=== PATIENT | female | born 1940 | race Caucasian/White ===

== ENCOUNTER 2017-02-06 07:41 | Emergency (ER) | payer MEDICARE, OTHER ==
[~2017-02-06] VITALS: Ht 162.6 cm; Wt 55.0 kg
[2017-02-06] MEDS ORDERED: SODIUM CHLORIDE FLUSH 10ML SYR IVF ONE (08:00)
[2017-02-06 08:21] LABS: WHITE BLOOD COUNT 8.2 x10^3/uL (3.4-10)
[2017-02-06 08:46] LABS: ASPARTATE AMINO TRANSFERASE 20 U/L (15-37); BLOOD UREA NITROGEN 32 mg/dL (7-18)
[2017-02-06 12:48] VITALS: BP 125/47
== END 2017-02-06 13:21 | disposition home or self-care (01) ==
LOC: ED 13:15
DX: R42 Dizziness and giddiness (principal); H53.9 Unspecified visual disturbance
CPT/HCPCS: 36415; 70551; 71010; 80053; 85025; 93005; 93880; 99285

== ENCOUNTER 2019-10-02 12:15 | Emergency (ER) | payer MEDICARE, OTHER ==
[~2019-10-02] VITALS: Ht 162.6 cm; Wt 52.2 kg
--- NOTE | 2019-10-02 14:48 | NUR ---
CV TECH: PT TO ROOM FROM [facility].
[2019-10-02] MEDS ORDERED: ACYC-114 PO (15:15)
--- NOTE | 2019-10-02 15:19 | NUR ---
VANESSA JONES AT BEDSIDE
--- NOTE | 2019-10-02 15:55 | NUR ---
PT IN US.
--- NOTE | 2019-10-02 16:39 | NUR ---
PT TO XR
--- NOTE | 2019-10-02 16:51 | NUR ---
RESULTS BACK, PT FOR RECHECK.
[2019-10-02 17:22] VITALS: BP 142/71
== END 2019-10-02 17:24 | disposition home or self-care (01) ==
LOC: ED 16:37
DX: N63.0 Unspecified lump in unspecified breast (principal)
CPT/HCPCS: 71046; 76642; 99284

== ENCOUNTER → 2019-10-03 | Outpatient (CLI) | payer MEDICARE ==
[~2019-10-03] MED LIST: ACYC-114 PO
== END | disposition home or self-care (01) ==
LOC: CFH 13:22
PROVIDERS: ATTEND Family Medicine
DX: N64.4 Mastodynia (principal)
CPT/HCPCS: 77066; G0279

== ENCOUNTER 2020-08-15 09:06 | Emergency (ER) | payer MEDICARE ==
[~2020-08-15] VITALS: Ht 165.1 cm; Wt 52.0 kg
[~2020-08-15 09:06] MED LIST changes: -ACYC-114 PO; +ACYC-40 PO
--- NOTE | 2020-08-15 09:35 | NUR ---
Pt arrived with complatins of lack of BM x1 week. Pt states that she had diarreha today but she is concerned that it doesn't amount to the quantity of food that she has consumed the past week. Connected to BP and O2 monitor, given warm blanket for comfort, daughter at bedside, made aware of need for UA, VIK ROMERO
--- NOTE | 2020-08-15 09:43 | NUR ---
Pt to XRAY
--- NOTE | 2020-08-15 10:13 | NUR ---
Pt assited down hallway for urine sample
[2020-08-15 10:38] LABS: BASOPHILS % (AUTO) 0 % (0-1); EOSINOPHILS % (AUTO) 1 % (1-7); LYMPHOCYTES % (AUTO) 12 % (22-44); MEAN CORPUSCULAR HEMOGLOBIN 31.8 pg (27.0-34.8); MEAN CORPUSCULAR HGB CONC 32.8 g/dL (32.4-35.8); MEAN PLATELET VOLUME 9.5 fL (7.4-10.4); MONOCYTES % (AUTO) 4 % (2-9); NEUTROPHILS % (AUTO) 83 % (42-75); PLATELET COUNT 154 x10^3/uL (130-400); RED BLOOD COUNT 4.48 x10^6/uL (3.82-5.3); RED CELL DISTRIBUTION WIDTH 13.6 % (9.6-15.2)
[2020-08-15 10:44] LABS: MD NO
[2020-08-15 10:51] LABS: ALANINE AMINOTRANSFERASE 33 U/L (12-78); ALBUMIN 3.6 g/dL (3.4-5.0); ANION GAP 6 mmol/L (5-15); CALCIUM 9.2 mg/dL (8.5-10.1); CHLORIDE 114 mmol/L (98-107); CREATININE 0.98 mg/dL (0.55-1.02)
[2020-08-15 10:51] LABS: MICROSCOPIC AUTO
[2020-08-15 10:53] LABS: ALKALINE PHOSPHATASE 75 U/L (45-117); BILIRUBIN,TOTAL 0.7 mg/dL (0.2-1.0); TOTAL PROTEIN 6.9 g/dL (6.4-8.2)
--- NOTE | 2020-08-15 11:01 | NUR ---
TASK RN: CONTINUES TO AWAIT CT. NO DISTRESS AT THIS TIME.
--- NOTE | 2020-08-15 11:12 | NUR ---
Pt in CT at this time.
--- NOTE | 2020-08-15 11:14 | NUR ---
Pt back from CT
[2020-08-15] MEDS ORDERED: OMNIPAQUE 350 MG/ML, 100ML BOTTLE ONE (11:17)
[2020-08-15 12:02] VITALS: BP 116/51
[2020-08-15] MEDS ORDERED: BENZTROPINE 1 MG/ML, 2 ML IVPush ONE (12:30)
== END 2020-08-15 12:33 | disposition home or self-care (01) ==
LOC: ED 10:19
DX: K59.00 Constipation, unspecified (principal); R10.84 Generalized abdominal pain; Z90.710 Acquired absence of both cervix and uterus
CPT/HCPCS: 36415; 74021; 74174; 80053; 81001; 85025; 87086; 99285; Q9967

== ENCOUNTER 2020-08-23 13:15 | Emergency (ER) | payer MEDICARE ==
[~2020-08-23] VITALS: Ht 162.6 cm; Wt 52.0 kg
--- NOTE | 2020-08-23 14:29 | NUR ---
[facility] KAY STITCHER: PT TO ROOM FROM LOBBY
--- NOTE | 2020-08-23 14:37 | NUR ---
PT AMBULATORY TO ROOM, PT CHANGED INTO GOWN. MONITORS IN PLACE. CALL LIGHT WITHIN REACH
--- NOTE | 2020-08-23 14:40 | NUR ---
PA AT BS
[2020-08-23] MEDS ORDERED: PINK LADY ENEMA 490 ML BOTTLE PR STA (14:43)
[2020-08-23 15:20] LABS: BASOPHILS % (AUTO) 1 % (0-1); EOSINOPHILS % (AUTO) 1 % (1-7); LYMPHOCYTES % (AUTO) 23 % (22-44); MEAN CORPUSCULAR HEMOGLOBIN 31.8 pg (27.0-34.8); MEAN CORPUSCULAR HGB CONC 33.6 g/dL (32.4-35.8); MEAN PLATELET VOLUME 9.6 fL (7.4-10.4); MONOCYTES % (AUTO) 5 % (2-9); NEUTROPHILS % (AUTO) 70 % (42-75); PLATELET COUNT 171 x10^3/uL (130-400); RED BLOOD COUNT 4.43 x10^6/uL (3.82-5.3); RED CELL DISTRIBUTION WIDTH 13.1 % (9.6-15.2)
[2020-08-23 15:35] LABS: ALANINE AMINOTRANSFERASE 44 U/L (12-78); ALBUMIN 3.9 g/dL (3.4-5.0); ANION GAP 10 mmol/L (5-15); CALCIUM 9.7 mg/dL (8.5-10.1); CHLORIDE 107 mmol/L (98-107); CREATININE 1.03 mg/dL (0.55-1.02)
[2020-08-23 15:37] LABS: ALKALINE PHOSPHATASE 73 U/L (45-117); TOTAL PROTEIN 6.9 g/dL (6.4-8.2)
[2020-08-23 15:38] LABS: MICROSCOPIC NOT IND
--- NOTE | 2020-08-23 16:06 | NUR ---
PT GIVEN JUICE & PEANUT BUTTER SANDWICH FOR HYPOGLYCEMIA. PT ENCOURAGED TO HAVE A BM SOON SHE FEELS THE URGE. COMMODE REMAINS AT BS. CALL LIGHT WITHIN REACH
[2020-08-23 16:13] VITALS: BP 128/60
--- NOTE | 2020-08-23 16:13 | NUR ---
PT SITTING UP EATING SANDWICH, DENIES ANY PAIN. PT ABLE TO HAVE SMALL BM. PT STATES SHE FEELS SOME RELIEF. NADN/VSS. CALL LIGHT WITHIN REACH
--- NOTE | 2020-08-23 17:00 | NUR ---
Patient given discharge instructions and they have confirmed that they understand the instructions. Patient ambulatory with steady gait.
== END 2020-08-23 17:01 | disposition home or self-care (01) ==
LOC: ED 16:55
DX: R10.84 Generalized abdominal pain (principal); K59.00 Constipation, unspecified; R10.13 Epigastric pain; Z90.710 Acquired absence of both cervix and uterus; Z90.89 Acquired absence of other organs; Z88.2 Allergy status to sulfonamides
CPT/HCPCS: 36415; 74021; 80053; 81003; 83690; 85025; 99284